=== PATIENT | female | born 1955 | race Caucasian/White ===

== ENCOUNTER 2020-03-11 08:57 | Outpatient (CLI) | payer OTHER, SELFPAY ==
--- NOTE | ~2020-03-11 | MR_ITS ---
EXAMINATION: MR knee RT wo con DATE: 03/11/2020 10:08 INDICATION: Right knee joint effusion TECHNIQUE: Magnetic resonance imaging (MRI) of the right knee was performed without intravenous contr ast. Sequences included coronal PD-weighted FSE, coronal PD-weighted FS FSE, sagittal T2-weighted FS E, sagittal PD-weighted FS FSE and axial PD weighted fat saturated FSE. COMPARISON: None. FINDINGS: Small amount of motion artifact on several sequences which mildly decreases sensitivity and specifici ty. Medial compartment: Medial meniscus is normal. Small region of partial-thickness chondral fissuring without degenerative subarticular changes along the lateral margin of the anterior weightbearing medial femoral condyle. Lateral compartment: Likely complex tear of the anterior horn of the lateral meniscus with radial tear plane near the root of the meniscus which does not involve the portion of the meniscus contiguous with the intact transv erse ligament of the knee. Additional partial-thickness longitudinal vertical tear plane extending to the superior articular surface of the more peripheral anterior horn. Deep chondral ulceration with cartilage defect measuring approximately 9 x 5 mm at the central aspect of the lateral tibial plateau which appears to involve greater than 50% the cartilage thickness but without degenerative subarticu lar changes. Partial-thickness cartilage loss with smooth chondral surface at the central weightbeari ng lateral femoral condyle. Patellofemoral compartment: Diffuse partial thickness cartilage loss at the patella with mild chondral surface irregularity. Smal l region of deep chondral fissuring with mild subarticular edema at the patellar apical ridge. Trochl ear cartilage appears normal. Ligaments and tendons: Anterior and posterior cruciate ligaments are normal. The medial collateral ligament and fibular jerome ateral ligament complex are normal. Pushpa tendon is normal. Mild enthesopathy and small enthesophyte s at the distal quadriceps tendon. The visualized medial and lateral hamstring tendons as well as the iliotibial band are normal. Fluid: Likely reactive right knee joint effusion with small to moderate amount of fluid at the suprapatellar pouch where there is also a suprapatellar plical band. Moderate-sized Mccord's cyst measuring 3 x 1.8 x 2.5 cm. No loose osteochondral bodies identified. Prepatellar edema without discrete bursal fluid collection. Osseous/other: Side from the subarticular edema at the patella there is normal marrow signal. No fracture or patholo gic marrow replacing process. IMPRESSION: 1. Complex tear at the anterior horn of the lateral meniscus. Of note specificity for tears of the an terior horn of the lateral meniscus is lower than for the remainder of the menisci. 2. 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 3. Likely reactive small to moderate sized right knee joint effusion with moderate-sized Mccord's cyst . Reviewed, dictated and finalized at location A. IMPRESSION: 1. Complex tear at the anterior horn of the lateral meniscus. Of note specifici ty for tears of the anterior horn of the lateral meniscus is lower than for the remainder of the menisci. 2. 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 3. Likely reactive small to moderate sized right knee joint effusion with moder ate-sized Mccord's cyst.
== END 2020-03-11 08:58 | disposition home or self-care (01) ==
LOC: ANHIMG 09:07
PROVIDERS: Visit Provider Orthopaedic Surgery
DX: M25.461 Effusion, right knee (principal); S83.271A Complex tear of lateral meniscus, current injury, right knee, initial encounter; M17.11 Unilateral primary osteoarthritis, right knee
CPT/HCPCS: 73721

== ENCOUNTER 2020-03-25 07:52 | Outpatient (CLI) | payer OTHER, SELFPAY | END 2020-03-25 07:53 | disposition home or self-care (01) | LOC: ANHLAB 07:53 | PROVIDERS: Visit Provider Anesthesiology | DX: S83.289A Other tear of lateral meniscus, current injury, unspecified knee, initial encounter (principal); X58.XXXA Exposure to other specified factors, initial encounter | CPT/HCPCS: 36415 ==

== ENCOUNTER 2020-03-30 13:10 | Outpatient (CLI) | payer OTHER, SELFPAY ==
[2020-03-30 13:53] LABS: Blood Urea Nitrogen 21 mg/dL (7-17); Calcium 8.7 mg/dL (8.4-10.2); Carbon Dioxide 31 mmol/L (22-30); Chloride 102 mmol/L (98-107); Estimated Glomerular Filt Rate > 60; Glucose 97 mg/dL (65-105); Potassium 3.7 mmol/L (3.4-5.0); Sodium 138 mmol/L (137-145)
== END 2020-03-30 13:11 | disposition home or self-care (01) ==
PROVIDERS: Visit Provider Anesthesiology
DX: S83.289A Other tear of lateral meniscus, current injury, unspecified knee, initial encounter (principal); X58.XXXA Exposure to other specified factors, initial encounter
CPT/HCPCS: 36415; 80048

== ENCOUNTER 2020-03-31 00:24 | Outpatient (CLI) | payer OTHER, SELFPAY ==
[2020-03-31 18:06] LABS: SARS-CoV-2 RNA PCR Negative
== END 2020-03-31 00:25 | disposition home or self-care (01) ==
LOC: ANHCOVIDDT 00:24
PROVIDERS: Visit Provider Orthopaedic Surgery
DX: Z01.812 Encounter for preprocedural laboratory examination (principal); Z20.828 Contact with and (suspected) exposure to other viral communicable diseases; S83.209D Unspecified tear of unspecified meniscus, current injury, unspecified knee, subsequent encounter; X58.XXXD Exposure to other specified factors, subsequent encounter
CPT/HCPCS: 87635; C9803; U0003

== ENCOUNTER 2020-04-02 01:32 | Day surgery (SDC) | payer OTHER, SELFPAY ==
[2020-03-24 09:49] VITALS: BMI 22.0
[2020-04-02] VITALS (7 sets, daily range): BP systolic 115–136; BP diastolic 52–68; PULSE 61–98; RESP 9–18; TEMP 36.6–36.8; O2SAT 99–100
[2020-04-02] MEDS: LACTATED RINGERS 1,000 ML 30 ML IV CONT ×2 (07:00→09:03)
--- NOTE | 2020-04-02 07:03 | WPDANESEPPF ---
Anes - Initial Pre Proc Eval Procedure: Operation Date: 04/02/20 08:15 Proposed Procedures p Right Knee Arthroscopic Partial Lateral Menisectomy - Arnav Hernandez MD Date/Time: 04/02/20 07:03 Surgeon: Arnav Hernandez MD Pre Op Diagnosis: Right Knee Lateral Meniscus Tear Patient Data Age: 64 Gender: F Height: 1.63 m Weight: 58.8 kg Last Vital Signs Temp 36.6 C 04/02/20 06:36 Pulse 67 04/02/20 06:36 Resp 18 04/02/20 06:36 BP 115/67 04/02/20 06:36 Pulse Ox 99 04/02/20 06:36 Allergies Allergy/AdvReac Type Severity Reaction Status Date / Time Penicillins Allergy Mild RASH Verified 04/02/20 06:46 Home Medications Medication Instructions Recorded Confirmed Type escitalopram oxalate 10 mg tablet 10 mg PO DAILY 03/03/20 04/02/20 History spironolactone 100 mg tablet 100 mg PO BID 03/03/20 04/02/20 History Patient hx anesthesia problems: none Family hx anesthesia problems: none PMFSH Past Medical History Medical History (Updated 04/02/20 @ 06:51 by Davon Louie DO) Acute lateral meniscus tear of right knee Depression Herniated nucleus pulposus of lumbosacral region Herniated nucleus pulposus, C5-6 Surgical History Surgical History History of laparoscopic-assisted vaginal hysterectomy (~1995) History of left inguinal hernia repair (~2002) History of lumpectomy of left breast (~2005) History of lumpectomy of right breast (~2007) History of melanoma excision (~1993) History of tonsillectomy and adenoidectomy (~1963) History of ventral hernia repair (~2011) Anes - Eval Final PreProcedure Day of Procedure 04/02/20 07:03 Patient weight: normal Heart: regular rate and rhythm Lungs: clear to auscultation and normal air movement Airway: Mallampati scale class III and other (bulging disc C5-6 but good mobility ) Neurological: alert and oriented Last oral intake: >/= 8 hours ASA classification: II Emergent: no Anesthetic plan: proceed Anesthesia type and monitoring: general LMA Other findings: top 4 teeth porcelain caps Informed Consent: The patient's anesthetic plan and its attendant risks and benefits were discussed with the patient/family/POA. Questions were solicited and answers provided to the satisfaction of the patient/family/POA.
--- NOTE | 2020-04-02 07:08 | WPDHPUPDATE1 ---
History and Physical Update Update Date/Time: 04/02/20 07:08 History and Physical has been reviewed, including an updated exam of the patient. There are NO changes in the patient's condition. Risks, benefits, and alternatives have been discussed and questions answered. Patient agrees to proceed with procedure.
[2020-04-02] MEDS: ceFAZolin 2 GM/D5W 50 ML 2 GM/50 ML BAG IVPB (08:02)
[2020-04-02] MEDS: BUPIVACAINE/EPINEPHRINE 0.5% 30 ML VIAL 20 ML INFILTRATE (08:33)
--- NOTE | 2020-04-02 17:05 | P.OP_ITS ---
Procedure Note - Detailed Date of procedure: 04/02/20 Pre-op diagnosis: Right Knee Lateral Meniscus Tear Post-op diagnosis: same Procedure performed: Arthroscopic partial lateral meniscectomy. Description of procedure: Significant anterior horn lateral meniscus tear was encountered. This extended laterally. Significant portion the meniscus was debrided and a tapered to a smooth rim. The radiofrequency probe was also used. Grade 3 chondromalacia found on the tibia with significant softening centrally. Posterior meniscus was in good condition. The ACL was intact. The medial compartment showed minimal grade 1 chondromalacia. The meniscus was intact. Patellofemoral joint showed grade 2/Iii chondromalacia on the patella. The trochlea appeared benign. Gentle peripatellar debridement and chondroplasty was performed. There was a bit of hypertrophic synovium and a synovial fold superiorly which were carefully and gently debrided. Anesthesia: GETA Surgeon: Arnav Hernandez MD Estimated blood loss (mL): 5 Complications: None Condition: stable Findings: Procedure Details: The patient was identified and the surgical site confirmed and signed in the preoperative holding area. Antibiotics were started per protocol. She was brought to the operative room and transferred to the OR table. A general anesthetic was administered. Supine position with the operative lower extremity position in the leg reardon after placement of a well padded tourniquet. The leg support was lowered and the contralateral limb was supported with a soft bolster. The knee was prepped and draped in the usual sterile fashion. A time-out was performed. The portal sites were marked and infiltrated with 0.5% Marcaine 20 mL. The limb was exsanguinated and the tourniquet inflated to 300 mL Hg. Standard inferolateral and inferomedial portals were established. Inflow was obtained with the saline pump. The camera was introduced. Diagnostic inspection of the joint was accomplished. The meniscus was debrided with the arthroscopic shaver and punches until stable. The radiofrequency probe was also used. Gentle chondroplasty of the patella was performed. A small synovial fold, and hypertrophic synovium in the superior pouch was addressed with the art hroscopic shaver and radiofrequency probe. The arthroscopic instruments were removed. The tourniquet released and wounds closed with subcutaneous 3-0 Monocryl absorbable suture. Steri strips and a st erile dressing were applied. A light elastic wrap was placed. The patient was extubated and brought to the recovery room in stable condition.
== END 2020-04-02 10:45 | disposition home or self-care (01) ==
PROVIDERS: Visit Provider Orthopaedic Surgery
PROC: (CPT 29870; principal; 2020-04-02 08:15)
DX: M23.341 Other meniscus derangements, anterior horn of lateral meniscus, right knee (principal); M94.261 Chondromalacia, right knee; F32.9 Major depressive disorder, single episode, unspecified
CPT/HCPCS: 29881; J0131; J0690; J2250; J2405; J2704; J3010; J7120

== ENCOUNTER 2020-05-13 06:32 | Emergency (ER) | payer OTHER, SELFPAY ==
[2020-05-13 06:42] VITALS: BP 127/100; PULSE 64; RESP 15; TEMP 36.6; O2SAT 100
--- NOTE | 2020-05-13 07:09 | ED.UPPEXIN ---
HPI - Extremity Injury (Upper) General Chief Complaint: Extremity Injury, Upper Stated Complaint: right ring finger injury Time Seen by Provider: 05/13/20 07:06 Source: patient and family Mode of arrival: ambulatory Limitations: no limitations History of Present Illness HPI narrative: Patient is a 65-year-old female who presents for evaluation of infection to her right ring finger. Patient states she was gardening on Sunday, had been wearing gloves, when Sunday she noticed the finger was swollen, it seems to be some purulent discharge has collected. There is some redness and swelling at the base of the nail. Patient denies numbness, fever or chills. No linear streaking or erythema of the arm. No wrist pain. Patient is right-hand dominant. Pain is dull, aching in nature without radiation. No history of skin infection in the past. Related Data Home Medications Medication Instructions Recorded Confirmed escitalopram oxalate 10 mg tablet 10 mg PO DAILY 03/03/20 04/02/20 spironolactone 100 mg tablet 100 mg PO BID 03/03/20 04/02/20 Allergies Allergy/AdvReac Type Severity Reaction Status Date / Time Penicillins Allergy Mild RASH Verified 05/13/20 06:46 Review of Systems Review of Systems: Narrative: CONSTITUTIONAL: Denies fever CARDIOVASCULAR: Denies chest pain RESPIRATORY: Denies cough or dyspnea. GASTROINTESTINAL: Denies abdominal pain SKIN: Denies rash MUSCULOSKELETAL: Denies back pain NEUROLOGIC: Denies headache [facility] Past Medical History Medical History Acute lateral meniscus tear of right knee Depression Herniated nucleus pulposus of lumbosacral region Herniated nucleus pulposus, C5-6 Surgical History Surgical History History of laparoscopic-assisted vaginal hysterectomy (~1995) History of left inguinal hernia repair (~2002) History of lumpectomy of left breast (~2005) History of lumpectomy of right breast (~2007) History of melanoma excision (~1993) History of tonsillectomy and adenoidectomy (~1963) History of ventral hernia repair (~2011) Family History Family History Father Hypertension Cancer Arthritis Mother Arthritis Hypertension Exam Narrative: Exam Narrative: GENERAL: Awake, alert, conversant HEAD: Normocephalic, atraumatic. EYES: PERRLA and EOMI. ENT: Nares clear, no rhinorrhea or epistaxis. Mucous membranes moist. NECK: Supple. CHEST: No respiratory distress, breathing even and non labored HEART: Regular rate, sinus rhythm ABDOMEN:Non distended, non tender EXTREMITIES: Normal range of motion. No edema. SKIN: Warm, dry, no rash. Edema, erythema, tenderness to the base of the nail, right fourth distal phalanx. Positive purulent discharge. Radial pulse 2+. Intact sensation median, ulnar, radial nerve distribution. NEURO:No focal deficits. Alert and oriented x3 Course Vital Signs Vital signs: Vital Signs Temperature 36.6 C 05/13/20 06:42 Pulse Rate 64 05/13/20 06:42 Respiratory Rate 15 05/13/20 06:42 Blood Pressure 127/100 H 05/13/20 06:42 Pulse Oximetry 100 05/13/20 06:42 Temperature 36.6 C 05/13/20 06:42 Pulse Rate 64 05/13/20 06:42 Respiratory Rate 15 05/13/20 06:42 Blood Pressure 127/100 H 05/13/20 06:42 Pulse Oximetry 100 05/13/20 06:42 Procedures Abscess I/D hand: Date of Incision: 05/13/20 Side (if applicable): right Local Anesthetic: lidocaine 1% Amount of anesthesia used (mL): 4 Technique: incised with #11 blade Amount of fluid expressed (mL): 1 Irrigation: Yes Packing used?: none I&D Results: Pus and Blood Nerve Block Nerve Block 1: Nerve block date: 05/13/20 Nerve block time: 07:40 Time out performed: Yes Local Anesthetic: lidocaine 1% Amount of anesthesia used (mL): 4
== END 2020-05-13 08:59 | disposition home or self-care (01) ==
PROVIDERS: Emergency Provider Emergency Medicine
DX: L03.011 Cellulitis of right finger (principal); F32.9 Major depressive disorder, single episode, unspecified; Z85.820 Personal history of malignant melanoma of skin
CPT/HCPCS: 26010; 99283